=== PATIENT | male | born 1970 | race Two or more races ===

== ENCOUNTER 2022-05-25 19:52 | Emergency (ER) | payer OTHER ==
[~2022-05-25] VITALS: Ht 170.2 cm; Wt 91.6 kg
[~2022-05-25 19:52] MED LIST: VASOTEC20 M1
[2022-05-25] MEDS ORDERED: HYDROCHLOROTHIA25 MG PO (22:36)
== END 2022-05-25 22:42 | disposition home or self-care (01) ==
LOC: ER 19:52
DX: I16.9 Hypertensive crisis, unspecified (principal)

== ENCOUNTER 2025-01-01 05:58 | Inpatient (IN) | payer OTHER ==
[~2025-01-01] VITALS: Ht 170.2 cm; Wt 87.5 kg
[~2025-01-01 05:58] MED LIST changes: +HYDROCHLOROTHIA25 MG PO
[2025-01-01] MEDS ORDERED: KETOROLAC TROMETHAMINE 30 MG VIAL IV STA (06:22)
[2025-01-01] MEDS ORDERED: FAMOTIDINE/PF 20 MG/2 ML VIAL IV PUSH STA (06:23)
[2025-01-01] MEDS ORDERED: PROMETHAZINE HCL 50 MG/ML AMPUL IM STA (06:23)
[2025-01-01] MEDS ORDERED: RINGERS SOLUTION,LACTATED 1,000 ML IV ONE (06:30)
[2025-01-01 07:13] LABS: BASO % 0.3 % (0.1-1.2); EOS # 0.05 (0.04-0.54); EOS % 0.4 % (0.7-7.0); LYMPH # 1.23 (1.18-3.74); LYMPH % 10.7 % (19.3-53.1); MEAN PLATELET VOLUME 12.00 fl (9.4-12.4); MONO # 0.51 (0.24-0.82); MONO % 4.4 % (4.7-12.5); NEUT # 9.67 (1.56-6.13); NEUT % 83.9 % (34.0-71.1); RED CELL DISTRIBUTION WIDTH 14.5 % (11.6-14.4)
[2025-01-01 07:32] LABS: INR 1.04
[2025-01-01 07:36] LABS: URINE APPEARANCE Clear; URINE BILIRRUBIN Negative (NEGATIVE); URINE BLOOD Negative; URINE COLOR Yellow; URINE GLUCOSE Negative (NEGATIVE); URINE KETONE Negative (NEGATIVE); URINE LEUKOCYTE Negative; URINE NITRATE Negative; URINE PROTEIN Negative (NEGATIVE); URINE UROBILINOGEN 0.2 E.U./dl
[2025-01-01 07:40] LABS: URINE BACTERIA 7.1 uL (0.0-1933); URINE EPITHELIAL CELLS 4.2 uL (0.0-38.8); URINE RBC 2.4 uL (0.0-20.8); URINE WBC 11.2 uL (0.0-23.2)
[2025-01-01 07:44] LABS: ALT/SGPT 62.0 U/L (12-78); AST/SGOT 34.0 U/L (15-37); BILIRUBIN TOTAL 0.43 mg/dL (0.3-1.2); BILIRUBIN,CONJUGATED 0.15 mg/dL (0.0-0.2); BUN CREA RATIO 17.0 (7.0-25.0); CREATININE SERUM 1.02 mg/dL (0.70-1.30); GFR 76.69; GLOBULINA 3.9 G/DL (2.4-3.5); GLUCOSE FASTING 146.0 mg/dL (65-100); OSMOLALITY SERUM 285.0 MOSM/KG (275-295)
[2025-01-01 07:53] LABS: URINE CAST 0.14 uL (0.0-1.40)
[2025-01-01] MEDS ORDERED: CEFTRIAXONE SODIUM 1,000 MG VIAL IV STA (08:16)
[2025-01-01] MEDS ORDERED: MORPHINE SULFATE 2 MG/ML CARTRIDGE IV PRN ×2 (14:45→17:00)
[2025-01-01] MEDS ORDERED: ENALAPRILAT DIHYDRATE 1.25 MG/ML VIAL IV PRN (14:45)
[2025-01-01] MEDS ORDERED: ACETAMINOPHEN 325 MG TABLET PO PRN (14:45)
[2025-01-01] MEDS ORDERED: ONDANSETRON HCL 2 MG/ML VIAL IM PRN ×2 (14:45→17:00)
[2025-01-01] MEDS ORDERED: 0.9 % SODIUM CHLORIDE 1,000 ML IV SCH (16:45)
[2025-01-01] MEDS ORDERED: PIPERACILLIN/TAZOBACTAM SODIUM 3.375 GM in DEXTROSE 5 % IN WATER 100 ML IV SCH (18:00)
[2025-01-01] MEDS ORDERED: BUPIVACAINE HCL/MPF 0.5% 30ML VIAL ONE (20:31)
[2025-01-01] MEDS ORDERED: LIDOCAINE HCL 1%/EPINEPHRINE 20ML VIAL IJ ONE (20:32)
[2025-01-01] MEDS ORDERED: CEFAZOLIN SODIUM 1,000 MG VIAL ONE (21:47)
[2025-01-01] MEDS ORDERED: SUGAMMADEX SODIUM 200 MG/2 ML VIAL IV ONE (22:23)
[2025-01-01] MEDS ORDERED: MORPHINE SULFATE 4 MG/ML VIAL IV ONE (23:10)
[2025-01-02] MEDS ORDERED: PIPERACILLIN/TAZOBACTAM SODIUM 3.375 GM VIAL IV ONE (00:22)
[2025-01-02] MEDS ORDERED: ENALAPRILAT DIHYDRATE 1.25 MG/ML VIAL IV ONE (00:36)
[2025-01-02 02:22] VITALS: BP 143/76; O2SAT 93
[2025-01-02] MEDS ORDERED: FAMOTIDINE/PF 20 MG in 0.9 % SODIUM CHLORIDE 100 ML IV SCH (09:00)
[2025-01-02 09:49] VITALS: BP 126/71; O2SAT 95
[2025-01-02] MEDS ORDERED: SUGAMMADEX SODIUM 200 MG/2 ML VIAL IV ONE (18:00)
[2025-01-02] MEDS ORDERED: CEFAZOLIN SODIUM 1,000 MG VIAL IV SCH (18:00)
[2025-01-02 18:18] VITALS: BP 146/87; O2SAT 96
== END 2025-01-02 20:00 | disposition home or self-care (01) | DRG 417 ==
LOC: ER 05:58 → SEC-K 16:49 → MEDJ 16:49
PROVIDERS: General Practice; Specialist; ADMIT Student in an Organized Health Care Education/Training Program; ATTEND Student in an Organized Health Care Education/Training Program
PROC: BW40ZZZ Ultrasonography of Abdomen (ICD-10-PCS; 2025-01-01)
PROC: 0FT44ZZ Resection of Gallbladder, Percutaneous Endoscopic Approach (ICD-10-PCS; principal; 2025-01-01 17:00)
DX: K80.10 Calculus of gallbladder with chronic cholecystitis without obstruction (principal); A41.9 Sepsis, unspecified organism; N12 Tubulo-interstitial nephritis, not specified as acute or chronic; I16.9 Hypertensive crisis, unspecified; R65.10 Systemic inflammatory response syndrome (SIRS) of non-infectious origin without acute organ dysfunction; K35.80 Unspecified acute appendicitis; N17.9 Acute kidney failure, unspecified; N30.00 Acute cystitis without hematuria; R50.82 Postprocedural fever; K80.20 Calculus of gallbladder without cholecystitis without obstruction; R10.31 Right lower quadrant pain; R10.11 Right upper quadrant pain; D64.9 Anemia, unspecified